=== PATIENT | female | born 1980 | race Hispanic/Latino ===

== ENCOUNTER 2016-06-27 09:46 | Emergency (ER) | payer OTHER ==
[~2016-06-27] VITALS: Ht 154.9 cm; Wt 59.2 kg
[~2016-06-27 09:46] MED LIST: BACTRIM,SEPT1 TABLET PO; MACROBID100 MG PO; NAPROSYN500 MG PO; PYRIDIUM100 MG PO; PYRIDIUM200 MG PO
[2016-06-27] MEDS ORDERED: ADVIL,NUPRIN,M200 MG PO (10:09)
[2016-06-27 10:35] LABS: ADD MIUA? NO; BILIRUBIN NEGATIVE; BLOOD NEGATIVE; COLOR YELLOW ((YELLOW)); GLUCOSE (STRIP) NEGATIVE; KETONES NEGATIVE; LEUKOCYTES NEGATIVE; NITRITE NEGATIVE; PROTEIN (STRIP) NEGATIVE; SPECIFIC GRAVITY 1.024 (1.000-1.030); UROBILINOGEN 0.2 MG/DL (0.2-1.0)
[2016-06-27] MEDS ORDERED: TRAMADOL HCL50 MG PO (11:34)
[2016-06-27] MEDS ORDERED: FLEXERIL5 MG PO (11:34)
[2016-06-27] MEDS ORDERED: MOTRIN600 MG PO (11:34)
[2016-06-27 11:59] VITALS: BP 116/68
== END 2016-06-27 12:00 | disposition home or self-care (01) ==
LOC: EME 09:46
PROVIDERS: Physician Assistant
DX: M54.5 Low back pain (principal); M79.604 Pain in right leg; M79.605 Pain in left leg; M25.511 Pain in right shoulder
CPT/HCPCS: 81003; 99281; 99284